=== PATIENT | female | born 1985 | race Caucasian/White ===

== ENCOUNTER 2022-09-10 13:39 | Emergency (ER) | payer MEDICAID ==
[~2022-09-10] VITALS: Ht 165.1 cm; Wt 143.0 kg
[2022-09-10] MEDS ORDERED: AMOX1TAB16 MT (16:07)
[2022-09-10] MEDS ORDERED: AMOXICILLIN/POTASSIUM CLAVULANATE 875/125MG TAB PO ONE (16:15)
[2022-09-10] MEDS ORDERED: TETANUS, DIPHTHERIA, PERTUSSIS VAC/PF 0.5ML (>10YR OLD) IM ONE (16:15)
[2022-09-10 16:45] VITALS: BP 140/94
[2022-09-10] MEDS ORDERED: IBUPROFEN 600MG TABLET PO ONE (16:45)
== END 2022-09-10 17:06 | disposition home or self-care (01) ==
LOC: ER 15:40
DX: S61.451A Open bite of right hand, initial encounter (principal); E11.9 Type 2 diabetes mellitus without complications; W55.01XA Bitten by cat, initial encounter; Y93.89 Activity, other specified; Y92.89 Other specified places as the place of occurrence of the external cause; Y99.8 Other external cause status
CPT/HCPCS: 81025; 90471; 90715; 99283

== ENCOUNTER 2024-11-12 19:52 | Emergency (ER) | payer MEDICAID ==
[~2024-11-12] VITALS: Ht 165.1 cm; Wt 136.0 kg
[~2024-11-12 19:52] MED LIST: AMOX1TAB16 MT
[2024-11-12 19:53] VITALS: O2SAT 99
[2024-11-12] MEDS ORDERED: CEPH500C2 MT (21:21)
[2024-11-12 21:28] VITALS: BP 118/74; PULSE 99; RESP 18; TEMP 37.1; O2SAT 98
[2024-11-12] MEDS: LIDOCAINE HCL 1% 20ML VIAL INFIL ONE (21:45)
== END 2024-11-12 22:05 | disposition left against medical advice (07) ==
LOC: ER 19:52
DX: R46.89 Other symptoms and signs involving appearance and behavior (principal); E11.9 Type 2 diabetes mellitus without complications; I10 Essential (primary) hypertension; E78.00 Pure hypercholesterolemia, unspecified
CPT/HCPCS: 82962; 99283